=== PATIENT | female | born 1950 | race Two or more races ===

== ENCOUNTER 2025-03-19 07:40 | Day surgery (SDC) | payer OTHER ==
[~2025-03-19] VITALS: Ht 167.6 cm; Wt 93.9 kg
[2025-03-19] VITALS (7 sets, daily range): BP systolic 142–156; BP diastolic 57–69; PULSE 55–66; RESP 15–18; TEMP 98.3; O2SAT 92–97
[~2025-03-19 07:40] MED LIST: AMLO1TAB22 PO; APIX5TAB PO; ATOR40TA52 PO; FURO20TA3 PO; MONT-8 PO; OMEG1400 PO; OMEP20TA PO
[2025-03-19] MEDS ORDERED: HEPARIN IN NS 1000Units/500mL 1,500 ML ONE (11:03)
[2025-03-19] MEDS ORDERED: IODIXANOL 320MG/ML 100ML BTL IV ONE ×2 (11:03→11:12)
[2025-03-19] MEDS ORDERED: HEPARIN SODIUM (PORCINE) 5000 UNITS/ML 1ML VIAL ONE (11:05)
[2025-03-19] MEDS ORDERED: ANGIOMAX 250 MG VIAL IV ONE (11:05)
[2025-03-19] MEDS ORDERED: VERAPAMIL 2.5MG/ML INJ 2ML VIAL IV ONE (11:06)
[2025-03-19] MEDS ORDERED: MIDAZOLAM HCL 2MG/2ML 2ml VIAL (1mg/ml) ONE (11:06)
[2025-03-19] MEDS ORDERED: fentaNYL CITRATE 100 MCG/2 ML VL ONE (11:06)
[2025-03-19] MEDS ORDERED: LIDOCAINE 2%HCL (LOCAL ANESTH.) INJ 20ML MDV ONE (11:06)
--- NOTE | 2025-03-19 11:32 | DVHOP2 ---
Operative Report Operative Report [facility] SPECIALIST PROCEDURE REPORT [place], [place] Date of Service: 03/19/25 Line Leader: Viktoria Tran MD PROCEDURES PERFORMED: Coronary angiogram, left heart catheterization, conscious sedation administration and supervision, less than 15 minutes; fluoroscopy use and interpretation. PREOPERATIVE DIAGNOSES: Abnormal stress test with CCS class 3 angina, POSTOP DIAGNOSIS: chest pain DESCRIPTION OF PROCEDURE: The patient or appropriate family signed informed consent understanding the risks, benefits and alternatives of the procedure, the y wished to proceed. The patient [place] [facility] [place] The patient was prepped in a sterile fashion. Sedation was used per cardiac cath protocol. I administered 2 mL of 2% lidocaine to the right wrist. With an antegrade front wall puncture. I cannulated the right radial artery and placed a 6-[place] Glidesheath slender. Next, an intra-arterial spasmolytic was administered. Next, a - 5French [place] catheter and were used for coronary angiogram and LVEDP measurement and pressure pullback. At the completion of procedure, all guides and wires were removed, and there were no immediate complications. FINDINGS: RCA: Moderate vessel off the right sinus of Valsalva, there is no severe flow limiting stenosis. dominant vessel LEFT MAIN: Moderate size left main, it bifurcates into LAD and circumflex. no stenosis CIRCUMFLEX: Moderate caliber vessel coming off the left main with no flow limiting stenosis. LAD: LAD is a moderate caliber vessel coming of the left main. no stenosis LVEDP of 13 mmhg CONCLUSIONS: 1. NO severe cad noted PLAN: Aggressive risk factor modification and medical management for the patient. VIKTORIA TRAN MD Mar 19, 2025 11:32
== END 2025-03-19 13:43 | disposition home or self-care (01) ==
LOC: CATH 07:40
PROVIDERS: ATTEND Internal Medicine
DX: I20.89 Other forms of angina pectoris (principal); R07.89 Other chest pain; R94.39 Abnormal result of other cardiovascular function study; J44.9 Chronic obstructive pulmonary disease, unspecified; Z79.899 Other long term (current) drug therapy; Z90.49 Acquired absence of other specified parts of digestive tract; Z98.890 Other specified postprocedural states
CPT/HCPCS: 93458; C1894; J1644; J2250; J3010; Q9967; 99152